=== PATIENT | female | born 1960 | race African-American/Black ===

== ENCOUNTER 2024-11-20 12:05 | Emergency (ER) | payer OTHER, MEDICARE, MEDICAID ==
[~2024-11-20] VITALS: Ht 170.2 cm; Wt 74.0 kg
[2024-11-20 12:18] VITALS: O2SAT 99
[2024-11-20] MEDS ORDERED: IBUP-1455 PO (14:21)
[2024-11-20 14:37] VITALS: BP 140/59; PULSE 65; RESP 18; TEMP 36.7; O2SAT 99
== END 2024-11-20 14:39 | disposition home or self-care (01) ==
LOC: ER 12:05
DX: M54.50 Low back pain, unspecified (principal); V89.2XXA Person injured in unspecified motor-vehicle accident, traffic, initial encounter; Y93.89 Activity, other specified; Y92.89 Other specified places as the place of occurrence of the external cause; Y99.8 Other external cause status
CPT/HCPCS: 72100; 99283